=== PATIENT | female | born 1950 | race Caucasian/White ===

== ENCOUNTER 2024-10-15 09:08 | Inpatient (IN) ==
[2024-10-15] MEDS: 0.9 % SODIUM CHLORIDE 1,000 ML IV ONE ×2 (09:45→13:50)
[2024-10-15 10:13] LABS: Basophils # (Auto) 0.01 K/mcL (0.00-0.30); Basophils % (Auto) 0.1 % (0.0-2.0); Eosinophils # (Auto) 0 K/mcL (0.00-0.70); Eosinophils % (Auto) 0 % (0.0-7.0); Hematocrit 38.7 % (34.1-44.9); Hemoglobin 12.2 g/dL (11.2-15.7); Lymphocytes # (Auto) 0.82 K/mcL (1.50-4.80); Lymphocytes % (Auto) 9.3 % (15.5-49.0); Mean Cell Volume 94.9 fL (80.0-100.0); Mean Corpuscular HGB Conc 31.5 g/dL (31.0-36.0); Mean Platelet Volume 10.8 fL (8.8-12.5); Monocytes % (Auto) 2.3 % (1.0-12.0); Neutrophils % (Auto) 87.8 % (38.0-78.0); Platelet Count 374 K/mcL (140-440); RBC 4.08 M/mcL (3.59-5.38); Red Cell Distribution Width 12.8 % (11.5-14.5); WBC 8.8 K/mcL (4.5-11.0)
[2024-10-15 10:40] LABS: ALT/SGPT 21 U/L (<40); AST/SGOT 13 U/L (<32); Albumin 3.6 gm/dL (3.2-5.2); Albumin/Globulin Ratio 1.1 (1.0-2.3); Alkaline Phosphatase 195 U/L (39-117); Bilirubin,Total 0.2 mg/dL (0.1-1.0); Blood Urea Nitrogen 73 mg/dL (8-23); Calcium 10.4 mg/dL (8.6-10.4); Carbon Dioxide 6 mmol/L (22-30); Chloride 84 mmol/L (96-108); Globulin 3.2 gm/dL (2.2-3.7); Glomerular Filtration Rate 18; Glucose 878 mg/dL (70-105); Potassium 6.6 mmol/L (3.3-5.1); Sodium 124 mmol/L (133-145)
[2024-10-15] MEDS: ONDANSETRON 4 MG/2 ML VIAL IV ONE (10:59)
[2024-10-15] MEDS: INSULIN REGULAR, HUMAN 1 UNIT/0.01 ML UNIT IV ONE ×4 (11:00→18:29)
[2024-10-15] MEDS: SODIUM BICARBONATE 50 MEQ/50 ML VIAL IV ONE (11:01)
[2024-10-15] MEDS: INSULIN REGULAR, HUMAN 50 UNIT in 0.9 % SODIUM CHLORIDE 99.5 ML IV SCH ×2 (11:50→14:40)
[2024-10-15] MEDS: 0.9 % SODIUM CHLORIDE 100 ML IV ONE (11:51)
[2024-10-15] MEDS ORDERED: ONDANSETRON 4 MG/2 ML VIAL IV PRN (13:41)
[2024-10-15] MEDS ORDERED: INSULIN REGULAR, HUMAN 50 UNIT in 0.9 % SODIUM CHLORIDE 99.5 ML IV SCH (13:41)
[2024-10-15] MEDS: 0.9 % SODIUM CHLORIDE 1,000 ML IV SCH (14:30)
[2024-10-15] MEDS: 0.9 % SODIUM CHLORIDE 10 ML SYRINGE IV SCH (14:31)
[2024-10-15 14:48] LABS: ABG Methemoglobin 0.4 % (0.4-1.5); Total Hemoglobin 11.8 gm/Dl (12.0-15.0); VBG Base Excess -21 (-2-3); VBG HCO3 6.6 mmol/L (24.0-28.0); VBG Oxygen Saturation 94.1 % (40.0-70.0); VBG PCO2 20.2 mmHg (41.0-51.0); VBG PH 7.13 U (7.32-7.42); VBG PO2 176.1 mmHg (25.0-40.0); VBG Total CO2 7.2 mmol/L (25.0-29.0)
[2024-10-15 15:21] LABS: Blood Urea Nitrogen 74 mg/dL (8-23); Calcium 9.1 mg/dL (8.6-10.4); Carbon Dioxide 5 mmol/L (22-30); Chloride 94 mmol/L (96-108); Glomerular Filtration Rate 16; Glucose 687 mg/dL (70-105); Potassium 4.8 mmol/L (3.3-5.1); Sodium 130 mmol/L (133-145)
[2024-10-15 15:31] LABS: Blood Urea Nitrogen 74 mg/dL (8-23); Calcium 9.3 mg/dL (8.6-10.4); Carbon Dioxide 5 mmol/L (22-30); Chloride 96 mmol/L (96-108); Glomerular Filtration Rate 16; Glucose 688 mg/dL (70-105); Phosphorous 5.1 mg/dL (2.5-4.5); Potassium 4.9 mmol/L (3.3-5.1); Sodium 132 mmol/L (133-145)
[2024-10-15] MEDS: INSULIN REGULAR, HUMAN 1 UNIT/0.01 ML UNIT ONE ×3 (18:25→20:58)
[2024-10-15 18:44] LABS: ABG Methemoglobin 0.2 % (0.4-1.5); Total Hemoglobin 11.5 gm/Dl (12.0-15.0); VBG Base Excess -10 (-2-3); VBG HCO3 15.7 mmol/L (24.0-28.0); VBG Oxygen Saturation 91.3 % (40.0-70.0); VBG PCO2 35.2 mmHg (41.0-51.0); VBG PH 7.27 U (7.32-7.42); VBG Total CO2 16.7 mmol/L (25.0-29.0)
[2024-10-15 19:19] LABS: Calcium 9.2 mg/dL (8.6-10.4); Phosphorous 3.3 mg/dL (2.5-4.5); Potassium 4.4 mmol/L (3.3-5.1)
[2024-10-15] MEDS: HEPARIN 5,000 UNIT/ML VIAL SQ SCH (21:03)
[2024-10-15 22:05] LABS: ABG Methemoglobin 0.3 % (0.4-1.5); Total Hemoglobin 11.6 gm/Dl (12.0-15.0); VBG Base Excess -7 (-2-3); VBG HCO3 18.1 mmol/L (24.0-28.0); VBG Oxygen Saturation 88.1 % (40.0-70.0); VBG PCO2 33.6 mmHg (41.0-51.0); VBG PH 7.35 U (7.32-7.42); VBG PO2 77.8 mmHg (25.0-40.0); VBG Total CO2 19.1 mmol/L (25.0-29.0)
[2024-10-15] MEDS: DEXTROSE 5%-NS 1,000 ML IV SCH (22:09)
[2024-10-15 22:12] LABS: Calcium 9.5 mg/dL (8.6-10.4); Phosphorous 2.9 mg/dL (2.5-4.5); Potassium 4.2 mmol/L (3.3-5.1)
[2024-10-15] MEDS ORDERED: POTASSIUM CHLORIDE 20 MEQ in DEXTROSE 5% IN WATER 250 ML IV PRN (22:59)
[2024-10-16 02:06] LABS: ABG Methemoglobin 0.3 % (0.4-1.5); VBG Base Excess -7 (-2-3); VBG HCO3 18.2 mmol/L (24.0-28.0); VBG Oxygen Saturation 91.2 % (40.0-70.0); VBG PCO2 34.8 mmHg (41.0-51.0); VBG PH 7.34 U (7.32-7.42); VBG PO2 104.4 mmHg (25.0-40.0); VBG Total CO2 19.3 mmol/L (25.0-29.0)
[2024-10-16 02:08] LABS: Albumin 2.9 gm/dL (3.2-5.2); Blood Urea Nitrogen 78 mg/dL (8-23); Calcium 9.5 mg/dL (8.6-10.4); Carbon Dioxide 20 mmol/L (22-30); Chloride 101 mmol/L (96-108); Glomerular Filtration Rate 18; Glucose 239 mg/dL (70-105); Phosphorous 3.3 mg/dL (2.5-4.5); Potassium 4.3 mmol/L (3.3-5.1); Sodium 132 mmol/L (133-145)
[2024-10-16 05:56] LABS: ABG Methemoglobin 0.2 % (0.4-1.5); Total Hemoglobin 11.6 gm/Dl (12.0-15.0); VBG Base Excess -6 (-2-3); VBG Oxygen Saturation 90.1 % (40.0-70.0); VBG PCO2 31.5 mmHg (41.0-51.0); VBG PH 7.38 U (7.32-7.42); VBG PO2 110.6 mmHg (25.0-40.0)
[2024-10-16 06:10] LABS: Basophils # (Auto) 0.02 K/mcL (0.00-0.30); Basophils % (Auto) 0.2 % (0.0-2.0); Eosinophils # (Auto) 0.05 K/mcL (0.00-0.70); Eosinophils % (Auto) 0.4 % (0.0-7.0); Hemoglobin 10.3 g/dL (11.2-15.7); Lymphocytes # (Auto) 2.77 K/mcL (1.50-4.80); Lymphocytes % (Auto) 24.4 % (15.5-49.0); Mean Cell Volume 93.3 fL (80.0-100.0); Mean Corpuscular HGB Conc 32.2 g/dL (31.0-36.0); Mean Platelet Volume 10.1 fL (8.8-12.5); Monocytes # (Auto) 1.05 K/mcL (0.10-0.90); Monocytes % (Auto) 9.3 % (1.0-12.0); Neutrophils % (Auto) 65.4 % (38.0-78.0); Platelet Count 266 K/mcL (140-440); RBC 3.43 M/mcL (3.59-5.38); Red Cell Distribution Width 13.1 % (11.5-14.5); WBC 11.4 K/mcL (4.5-11.0)
[2024-10-16 06:23] LABS: Albumin 2.8 gm/dL (3.2-5.2); Blood Urea Nitrogen 76 mg/dL (8-23); Calcium 9.4 mg/dL (8.6-10.4); Carbon Dioxide 19 mmol/L (22-30); Chloride 101 mmol/L (96-108); Glomerular Filtration Rate 18; Glucose 231 mg/dL (70-105); Phosphorous 2.9 mg/dL (2.5-4.5); Potassium 4.1 mmol/L (3.3-5.1); Sodium 132 mmol/L (133-145)
[2024-10-16] MEDS: INSULIN GLARGINE, HUMAN 1 UNIT/0.01 ML SQ SCH (09:26)
[2024-10-16] MEDS: OMEPRAZOLE 20 MG CAPSULE PO SCH (09:26)
[2024-10-16 10:41] LABS: Blood Urea Nitrogen 76 mg/dL (8-23); Calcium 9.6 mg/dL (8.6-10.4); Carbon Dioxide 18 mmol/L (22-30); Chloride 101 mmol/L (96-108); Glomerular Filtration Rate 18; Glucose 250 mg/dL (70-105); Potassium 4.1 mmol/L (3.3-5.1); Sodium 130 mmol/L (133-145)
[2024-10-16 12:33] LABS: Estimated Average Glucose(eAG) 226 mg/dL; Hemoglobin A1C 9.5 % Hgb (4.0-6.0)
[2024-10-16] MEDS: ACETAMINOPHEN 325 MG TABLET PO PRN (12:37)
[2024-10-16] MEDS ORDERED: DEXTROSE 31 GM ORAL.SUSP PO PRN (12:43)
[2024-10-16] MEDS ORDERED: DEXTROSE 50% 50 ML VIAL IV PRN (12:43)
[2024-10-16] MEDS: 0.9 % SODIUM CHLORIDE 1,000 ML IV SCH ×3 (13:12→13:13)
[2024-10-16] MEDS: INSULIN LISPRO 1 UNIT/0.01 ML UNIT SQ SCH (13:49)
[2024-10-16] MEDS: SIMVASTATIN 20 MG TABLET PO SCH (20:39)
[2024-10-17 05:49] LABS: Basophils # (Auto) 0.03 K/mcL (0.00-0.30); Basophils % (Auto) 0.5 % (0.0-2.0); Eosinophils # (Auto) 0.14 K/mcL (0.00-0.70); Eosinophils % (Auto) 2.1 % (0.0-7.0); Hematocrit 32.9 % (34.1-44.9); Hemoglobin 10.4 g/dL (11.2-15.7); Lymphocytes # (Auto) 2.21 K/mcL (1.50-4.80); Lymphocytes % (Auto) 33.3 % (15.5-49.0); Mean Cell Volume 92.9 fL (80.0-100.0); Mean Corpuscular HGB Conc 31.6 g/dL (31.0-36.0); Mean Platelet Volume 10.8 fL (8.8-12.5); Monocytes # (Auto) 0.64 K/mcL (0.10-0.90); Monocytes % (Auto) 9.7 % (1.0-12.0); Neutrophils % (Auto) 54.2 % (38.0-78.0); Platelet Count 222 K/mcL (140-440); RBC 3.54 M/mcL (3.59-5.38); Red Cell Distribution Width 13.6 % (11.5-14.5); WBC 6.6 K/mcL (4.5-11.0)
[2024-10-17 06:08] LABS: Albumin 2.6 gm/dL (3.2-5.2); Blood Urea Nitrogen 71 mg/dL (8-23); Calcium 9.4 mg/dL (8.6-10.4); Carbon Dioxide 19 mmol/L (22-30); Chloride 102 mmol/L (96-108); Glomerular Filtration Rate 23; Glucose 277 mg/dL (70-105); Phosphorous 2.8 mg/dL (2.5-4.5); Potassium 4.5 mmol/L (3.3-5.1); Sodium 132 mmol/L (133-145)
[2024-10-17] MEDS: CARVEDILOL 12.5 MG TABLET PO SCH (07:42)
[2024-10-17] MEDS: INSULIN GLARGINE, HUMAN 1 UNIT/0.01 ML SQ SCH (08:28)
[2024-10-17] MEDS ORDERED: INSULIN GLARGINE, HUMAN 1 UNIT/0.01 ML SQ SCH (09:00)
[2024-10-17 11:34] LABS: Appearance,Urine Turbid (Clear); Bacteria,Urine Few /hpf (0); Bilirubin,Urine Negative (Negative); Color,Urine Yellow; Glucose,Urine (UA) Negative (Negative); Ketones,Urine Negative (Negative); Leukocyte Esterase,Urine Large /uL (Negative); Nitrate,Urine Positive (Negative); PH,Urine 5.5 (5.0-9.0); Protein,Urine 100 mg/dL (Negative); Urine Blood Moderate ery/mcL (Negative); Urine RBC 2 /hpf (0-3); Urine Squamous Epithelial Cell 0 /hpf (0-4); Urine WBC > 182 /hpf (0-4); Urobilinogen,Urine Normal
[2024-10-17] MEDS: FOSFOMYCIN TROMETHAMINE 3 GM PACKET PO SCH (17:13)
[2024-10-17] MEDS: APIXABAN 5 MG TABLET PO SCH (20:36)
[2024-10-18 06:47] LABS: Albumin 2.9 gm/dL (3.2-5.2); Blood Urea Nitrogen 58 mg/dL (8-23); Calcium 10.2 mg/dL (8.6-10.4); Carbon Dioxide 20 mmol/L (22-30); Chloride 106 mmol/L (96-108); Glomerular Filtration Rate 37; Glucose 192 mg/dL (70-105); Phosphorous 1.9 mg/dL (2.5-4.5); Potassium 4.4 mmol/L (3.3-5.1); Sodium 136 mmol/L (133-145)
[2024-10-18] MEDS: FUROSEMIDE 40 MG/4 ML VIAL IV ONE (07:12)
[2024-10-18 11:54] VITALS: TEMP 98.1; O2SAT 95
== END 2024-10-18 12:29 | disposition home or self-care (01) | DRG 638 ==
LOC: ED 09:08 → ICU 13:34
PROVIDERS: ADMIT Internal Medicine; ATTEND Internal Medicine